=== PATIENT | female | born 1970 | race Caucasian/White ===

== ENCOUNTER 2021-11-11 03:55 | Emergency (ER) | payer SELFPAY ==
[2021-11-11 05:53] LABS: Basophils % (Auto) 0.4 % (0.0-1.8); Eosinophils # (Auto) 0.2 K/mm3 (0.0-0.4); Eosinophils % (Auto) 2.4 % (0.0-4.3); Hematocrit 39.7 % (30.3-42.9); Hemoglobin 12.5 gm/dl (10.1-14.3); Lymphocytes # (Auto) 2.4 K/mm3 (1.2-5.4); Mean Corpuscular HGB Conc 31 % (30-34); Mean Corpuscular Volume 87 fl (79-97); Monocytes # (Auto) 0.7 K/mm3 (0.0-0.8); Monocytes % (Auto) 8.1 % (0.0-7.3); Platelet Count 290 K/mm3 (140-440); Red Blood Count 4.58 M/mm3 (3.65-5.03); Red Cell Distribution Width 14.7 % (13.2-15.2)
[2021-11-11 06:00] LABS: BUN/Creatinine Ratio 18; Blood Urea Nitrogen 14 mg/dL (7-17); Calcium 9.1 mg/dL (8.4-10.2); Hemolysis Index 7
[2021-11-11 16:28] LABS: Bilirubin,Urine NEG (Negative); Blood,Urine NEG (Negative); Color,Urine Yellow (Yellow)
[2021-11-11 16:36] LABS: Amphetamine Screen,Urine Negative; Benzodiazepines Screen,Urine Negative; Cannabinoid Screen,Urine Negative; Methadone Screen,Urine Negative; Mucus,Urine 3+ /HPF; Opiate Screen,Urine Negative; WBC,Urine < 1.0 /HPF (0.0-6.0)
[2021-11-11 16:38] LABS: BUN/Creatinine Ratio 18; Blood Urea Nitrogen 14 mg/dL (7-17); Hemolysis Index 8
[2021-11-11 16:50] LABS: Cocaine Screen,Urine Positive
--- NOTE | 2021-11-11 17:00 | Emergency Department Report ---
ED N/V/D HPI - General Chief complaint: Nausea/Vomiting/Diarrhea Stated complaint: WEAKNESS Time Seen by Provider: 11/11/21 16:49 Source: patient, EMS Mode of arrival: Stretcher Limitations: No Limitations - History of Present Illness Initial comments: 51 yo Morbidly Obese F with history of anxiety and bipolar who represent with non bloody diarrhea that started about 3-4 days ago and progressively getting worse. Pt says sometime she will wake up drenched in watery diarrhea. She says when she up she gets good control. She also mentioned going through a lots of stress as she was in the process of getting from 30 years of marriage. She recently left [place] to start living in [place] 2 weeks ago because she wanted to move away from the family. She got a new job here in [place] and sharing apartment with 2 other men. She also mentioned the thought of killing herself but does not have a plan. She broke up crying during my conversation with her. She also reports that a pharmacist told her to start taken magnesium and Potassium 2 weeks because she c/o dehydration. She claimed she has not been drinking enough water. No other modifying or associated factors reported. - Related Data Allergies Allergy/AdvReac Type Severity Reaction Status Date / Time No Known Allergies Allergy Unverified 11/11/21 04:34 ED Review of Systems ROS: Stated complaint: WEAKNESS Other details as noted in HPI Comment: All other systems reviewed and negative Gastrointestinal: nausea, diarrhea. denies: abdominal pain Psychiatric: suicidal thoughts ED Past Medical Hx - Past Medical History Previous Medical History?: Yes Hx Psychiatric Treatment: Yes (Anxiety, Bipolar) - Surgical History Past Surgical History?: No - Social History Smoking Status: Current Every Day Smoker Substance Use Type: None ED Physical Exam - General Limitations: No Limitations General appearance: alert, in no apparent distress, anxious - Head Head exam: Present: normal inspection - Eye Eye exam: Present: normal appearance Pupils: Present: normal accommodation - ENT ENT exam: Present: normal exam, normal orophraynx, mucous membranes dry - Neck Neck exam: Present: normal inspection, full ROM. Absent: tenderness - Respiratory Respiratory exam: Present: normal lung sounds bilaterally. Absent: respiratory distress, accessory muscle use - Cardiovascular Cardiovascular Exam: Present: regular rate, normal rhythm, normal heart sounds - GI/Abdominal GI/Abdominal exam: Present: soft, normal bowel sounds. Absent: distended, tenderness - Extremities Exam Extremities exam: Present: normal inspection, full ROM, normal capillary refill. Absent: tenderness, pedal edema - Back Exam Back exam: Present: normal inspection. Absent: tenderness - Neurological Exam Neurological exam: Present: alert, oriented X3 - Psychiatric Psychiatric exam: Present: normal affect, normal mood, depressed - Skin Skin exam: Present: warm, normal color ED Course Vital Signs 11/11/21 11/11/21 04:00 15:36 Temperature 98 F Pulse Rate 89 91 H Respiratory 18 16 Rate Blood Pressure 135/84 Blood Pressure 127/81 [Right] O2 Sat by Pulse 99 98 Oximetry ED Medical Decision Making - Lab Data Result diagrams: 11/11/21 05:16 11/11/21 16:00 - Medical Decision Making here with diarrhea and going through lots of stress --associated with suicidal thoughts without any plan-- Her diarrhea is likely as result of increase stress level that can leads to anxiety that potentiate diarrhea, It could also be as a result of food allergy or poison considering new environment and new food, It could also be organic from viral or bacterial gastroenteritis, or bacterial diarrhea c-diff Or as a side effect of her new medication magnessium and potassium -- It could also be mechanical with rectal sphincter abnormality To rule out the above I will order routine CBC, CMP and UA with thyroid profile for any correctable cause. Given ivf ns 1L bolus x1 for hydration Will also consult Mental Health for evaluation of her suicide thought. UDS only positive for Cocaine - Critical care attestation.: If time is entered above; I have spent that time in minutes in the direct care of this critically ill patient, excluding procedure time. ED Disposition Clinical Impression: Diarrhea Qualifiers: Diarrhea type: unspecified type Qualified Code(s): R19.7 - Diarrhea, unspec ified Suicide Qualifiers: Encounter type: initial encounter Qualified Code(s): X83.8XXA - Intentional self-harm by other specified means, initial encounter Disposition: 30 STILL A PATIENT Is pt being admited?: No Does the pt Need Aspirin: No Condition: Stable
[2021-11-11 17:59] LABS: Free T4 (Free Thyroxine) 0.84 ng/dL (0.76-1.46)
--- NOTE | 2021-11-12 13:10 | Consultation ---
History of Present Illness - Reason for Consult Consult date: 11/12/21 Reason for consult: SI, depression - History of Present Psychiatric Illness HPI: 51 yo Morbidly Obese F with history of anxiety and bipolar who represent with non bloody diarrhea that started about 3-4 days ago and progressively getting worse. Pt says sometime she will wake up drenched in watery diarrhea. She says when she up she gets good control. She also mentioned going through a lots of stress as she was in the process of getting from 30 years of marriage. She recently left [place] to start living in [place] 2 weeks ago because she wanted to move away from the family. She got a new job here in [place] and sharing apartment with 2 other men. She also mentioned the thought of killing herself but does not have a plan. She broke up crying during my conversation with her. She also reports that a pharmacist told her to start taken magnesium and Potassium 2 weeks because she c/o dehydration. She claimed she has not been drinking enough water. No other modifying or associated factors reported. The patient was seen today. She has a history of bipolar, and PTSD, anxiety. She says she came to the ER because she "had some physical stuff going on." The patient says she's been for 30years and is now going through a divorce. She also endorses cocaine use but states "that's not a problem for her." The patient says she doesn't know what to do or what will happens once she leaves the hospital. She says she has given up on life and just doesn't want to live any more. She says she's been off her meds for 3 to 4 weeks. The patient says she was on prozac and seroquel, but states the seroquel did not agree with her and made her "sleep like a zombie." She says her has "gotten himself a younger woman." The patient denies a plan to commit suicide. She denies hallucinations. PAST PSYCHIATRIC HISTORY: Diagnoses: Anxiety, bipolar, PTSD Suicide attempts or Self-harm behavior: Denies Prior psychiatric hospitalizations: Denies Substance Abuse history: Cocaine Previous psychiatric medications tried: prozac, seroquel Outpatient treatment: yes PAST MEDICAL HISTORY: Family Psychiatric History: None reported or documented SOCIAL HISTORY Marital Status: Living Arrangements: with spouse Employment Status: Unemployed Access to guns/weapons: Denies Education: History of Abuse: None reported Legal History: None reported REVIEW OF SYSTEMS Constitutional: Negative for weight loss ENT: Negative for stridor Respiratory: Negative for cough or hemoptysis All other systems reviewed and are negative MENTAL STATUS EXAMINATION General Appearance and Behavior: Age appropriate, good hygiene, wearing appropriate clothes, good eye contact, cooperative Cooperation: Participating/engaged Psychomotor Behavior: unremarkable and within normal limits Mood: depressed Affect and affective range: congruent with mood Thought Process: goal directed Thought Content: SI, hopelessness Speech: normal tone and pace Suicidal Ideation: Yes Homicidal Ideation: Denies Hallucinations: Denies Impulse Control: attentive Insight and Judgment: Limited insight and poor judgment Memory: Normal Attention: Normal Orientation: Alert, oriented Assessment Major Depressive Disorder Cocaine Use Disorder Treatment Plan 1013 Prozac 20mg po daily Abilify 10mg po daily Doxepin 10mg po qhs Sitter: Defer to primary Medical: Per primary Disposition: Recommend acute inpatient treatment. Will follow. Thanks Case discussed with Dr. Quan Medications and Allergies Allergies Allergy/AdvReac Type Severity Reaction Status Date / Time No Known Allergies Allergy Unverified 11/11/21 04:34 Mental Status Exam - Vital signs Last Vital Signs Temp 98.6 F 11/12/21 08:23 Pulse 62 11/12/21 08:23 Resp 16 11/12/21 08:23 BP 100/60 11/12/21 08:23 Pulse Ox 98 11/12/21 09:19 Results Result Diagrams: 11/11/21 05:16 11/11/21 16:00 Abnormal lab results 11/11/21 11/11/21 11/11/21 Range/Units 16:00 16:00 16:00 Glucose 106 H (65-100) mg/dL Salicylates < 0.3 L (2.8-20.0) mg/dL Acetaminophen 5.0 L (10.0-30.0) ug/mL All other labs normal.
--- NOTE | 2021-11-12 13:19 | Emergency Department Report ---
Blank Doc - Documentation Documentation: 51-year-old female currently on 1013 for suicidal ideation. Awaiting placed. Chart and vital signs reviewed
[2021-11-12] MEDS: ARIPiprazole 10 MG TAB PO SCH (15:08)
[2021-11-12] MEDS: FLUoxetine 20 MG CAP PO SCH (15:08)
[2021-11-12] MEDS ORDERED: DOXEPIN 10 MG CAP PO SCH (22:00)
[2021-11-13] MEDS: FLUoxetine 20 MG CAP PO SCH (11:16)
[2021-11-13] MEDS: ARIPiprazole 10 MG TAB PO SCH (11:16)
--- NOTE | 2021-11-13 11:34 | Progress Note ---
Subjective - Reason for Consult Consult date: 11/13/21 Reason for consult: SI, depression - Chief Complaint Chief complaint: The patient was seen today. She still endorses severe depression with thoughts of self harm. She says she slept "on and off." The patient says "I lost everything so it doesn't matter." She says being in the hospital makes her feel like she's in the box. The patient says "but I know I can't hurt myself in here." She denies hallucinations. REVIEW OF SYSTEMS Constitutional: Negative for weight loss ENT: Negative for stridor Respiratory: Negative for cough or hemoptysis All other systems reviewed and are negative MENTAL STATUS EXAMINATION General Appearance and Behavior: Age appropriate, good hygiene, wearing appropriate clothes, good eye contact, cooperative Cooperation: Participating/engaged Psychomotor Behavior: unremarkable and within normal limits Mood: depressed Affect and affective range: congruent with mood Thought Process: goal directed Thought Content: SI, hopelessness Speech: normal tone and pace Suicidal Ideation: Yes Homicidal Ideation: Denies Hallucinations: Denies Impulse Control: attentive Insight and Judgment: Limited insight and poor judgment Memory: Normal Attention: Normal Orientation: Alert, oriented Assessment Major Depressive Disorder Cocaine Use Disorder Treatment Plan 1013 Increase Prozac 40mg po daily Abilify 10mg po daily Increase Doxepin 25mg po qhs Sitter: Defer to primary Medical: Per primary Disposition: Recommend acute inpatient treatment. Will follow. Thanks Case discussed with Dr. Quan Mental Status Exam - Vital signs Last Vital Signs Temp 98.6 F 11/12/21 20:19 Pulse 74 11/12/21 20:19 Resp 16 11/12/21 20:19 BP 104/62 11/12/21 20:19 Pulse Ox 98 11/13/21 10:42
[2021-11-13 13:38] VITALS: BP 113/60
--- NOTE | 2021-11-13 13:55 | Emergency Department Report ---
Blank Doc - Documentation Documentation: S: No events reported overnight O: Vital Signs - 8 hr 11/13/21 11/13/21 10:42 13:37 Temperature 97.6 F Pulse Rate 90 Respiratory 20 Rate Blood Pressure 113/60 [Right] O2 Sat by Pulse 98 98 Oximetry A: Major depressive disorder, cocaine use disorder P: 1013/awaiting inpatient psych
[2021-11-13] MEDS ORDERED: DOXEPIN 25 MG CAP PO SCH (22:00)
[2021-11-14] MEDS ORDERED: FLUoxetine 20 MG CAP PO SCH (10:00)
== END 2021-11-14 08:05 ==
LOC: EEVIPCON 03:55 → ED 03:55
DX: R19.7 Diarrhea, unspecified (principal); R45.851 Suicidal ideations; F31.9 Bipolar disorder, unspecified; F17.200 Nicotine dependence, unspecified, uncomplicated; Z20.822 Contact with and (suspected) exposure to COVID-19
CPT/HCPCS: 36415; 80048; 80307; 81001; 84439; 84443; 85025; 96372; 99285; U0003; 80320; 99284; G0480